=== PATIENT | female | born 1990 | race Caucasian/White ===

== ENCOUNTER 2016-11-30 21:57 | Emergency (ER) | payer OTHER ==
[~2016-11-30] VITALS: Ht 167.6 cm; Wt 77.1 kg
[~2016-11-30 21:57] MED LIST: GYNE-LOTRIMIN45 GM VG; IBUPROFEN600 MG ORAL; MACROBID100 MG ORAL; NKM; OFLOXACIN400 MG PO; ZOFRAN ODT4 MG ORAL
[2016-11-30] MEDS ORDERED: Ketorolac 30mg Inj IV ONE (22:45)
[2016-11-30] MEDS ORDERED: Acetaminophen 500mg (ES) tab ORAL ONE (22:45)
[2016-11-30 23:05] VITALS: BP 137/76
[2016-11-30 23:19] LABS: BASOPHILS % (AUTO) 0.5 % (0.0-2.0); EOSINOPHILS % (AUTO) 0.1 % (0.0-3.0); LYMPHOCYTES % (AUTO) 9.4 % (20.0-45.0); MEAN CORPUSCULAR HGB CONC 34.5 G/DL (32.0-36.0); MEAN CORPUSCULAR VOLUME 96 FL (80-99); MEAN PLATELET VOLUME 7.8 FL (6.5-10.1); MONOCYTES % (AUTO) 11.2 % (1.0-10.0); NEUTROPHILS % (AUTO) 78.9 % (45.0-75.0); PLATELET COUNT 144 K/UL (150-450); RED BLOOD COUNT 3.92 M/UL (4.20-5.40); RED CELL DISTRIBUTION WIDTH 11.2 % (11.6-14.8); WHITE BLOOD COUNT 13.8 K/UL (4.8-10.8)
[2016-11-30 23:26] LABS: APPEARANCE,URINE CLOUDY; KETONES,URINE 2+ (NEGATIVE); LEUKOCYTE ESTERASE ,URINE 3+ (NEGATIVE); NITRITE,URINE POSITIVE (NEGATIVE); PH,URINE 8 (4.5-8.0); PROTEIN,URINE 2+ (NEGATIVE); UROBILINOGEN,URINE NORMAL MG/DL (0.0-1.0)
[2016-11-30] MEDS ORDERED: cefTRIAXone 1 GM in NS 55 ML IVPB ONE (23:30)
[2016-11-30 23:38] LABS: ALANINE AMINOTRANSFERASE 15 U/L (3-33); ALBUMIN/GLOBULIN RATIO 1.2 (1.0-2.7); ANION GAP 17 (5-15); ASPARTATE AMINO TRANSFERASE 22 U/L (5-40); CALCIUM 8.9 mg/dL (8.6-10.2); CARBON DIOXIDE 28 mEQ/L (20-30); CHLORIDE 93 mEQ/L (98-107); CREATININE 0.9 mg/dL (0.5-0.9); GLOMERULAR FILTRATION RATE > 60 mL/min (>60); HEMOLYSIS 4; LIPASE 30 U/L (< 60); POTASSIUM 3.2 mEQ/L (3.4-4.9); SODIUM 138 mEQ/L (135-145); TOTAL PROTEIN 7.8 g/dL (6.6-8.7)
[2016-11-30 23:48] LABS: BACTERIA,URINE MANY /HPF; SQUAMOUS EPITHELIAL CELL,UR MANY /LPF (NONE/OCC); WBC,URINE TNTC /HPF (0 - 2)
--- NOTE | 2016-12-01 00:32 | Emergency Room Report ---
History of Present Illness General Chief Complaint: Abdominal Pain Source: Patient Present Illness HPI Is a 26-year-old female with no past medical history. She presents with chief complaint abdominal pain and fever. Onset yesterday. No nausea no vomiting. No diarrhea. Pain is diffuse. Does have some lower back pain. No dysuria frequency. No hematuria. Has not take anything for this. Pain is 7/10. Allergies: Coded Allergies: PENICILLINS (Verified Allergy, Mild, Itching, 06/05/14) Patient History Past Medical History: see triage record, old chart reviewed Past Surgical History: other Pertinent Family History: none Social History: Denies: smoking Last Menstrual Period: 11/16/16 Now: No Immunizations: other Reviewed Nursing Documentation: PMH: Agreed, PSxH: Agreed Review of Systems Constitutional: Reports: fever Eye: Denies: blurred vision, eye pain ENT: Denies: ear pain, nose congestion, throat swelling Respiratory: Denies: cough, shortness of breath Cardiovascular: Denies: chest pain, palpitations Gastrointestinal: Reports: abdominal pain Musculoskeletal: Denies: back pain, joint pain Skin: Denies: rash Neurological: Denies: headache, numbness Endocrine: Denies: increased thirst, increased urine Hematologic/Lymphatic: Denies: easy bruising All Other Systems: negative except mentioned in HPI Physical Exam Vital Signs Date Time Temp Pulse Resp B/P Pulse Ox O2 Delivery O2 Flow Rate FiO2 11/30/16 22:22 102.6 112 17 135/78 99 Room Air vitals with fever Sp02 EP Interpretation: reviewed, normal General Appearance: well appearing, no apparent distress, alert Head: normocephalic, atraumatic Eyes: bilateral eye EOMI, bilateral eye PERRL ENT: hearing grossly normal, normal pharynx Neck: full range of motion, supple, no meningismus Respiratory: chest non-tender, lungs clear, normal breath sounds Cardiovascular #1: regular rate, rhythm, no murmur Gastrointestinal: normal bowel sounds, no mass, no organomegaly, no bruit, non- distended, tenderness - LLQ tenderness with fullness Musculoskeletal: back normal, gait/station normal, normal range of motion Psychiatric: mood/affect normal Skin: warm/dry Medical Decision Making Diagnostic Impression: Primary Impression: Pyelonephritis Additional Impression: Ovarian mass, left ER Course Patient presents with fever and abdominal pain. She probably has a UTI/: Nephritis secondary to obstruction. She has a large left ovarian mass. This is concerning for neoplasm. Explained this to the patient. She will need [employer] followup and surgery. She felt better now. We'll discharge home. Lab Results Impression labs unremarkable CT/MRI/US Diagnostic Results CT/MRI/US Diagnostic Results : Imaging Test Ordered: CT abdomen and pelvis Impression Read by radiologist. Normal appendix. Large cystic mass measuring 21.8 cm x 10.7 cm x 21.5 cm arising from the left ovary. Last Vital Signs Date Time Temp Pulse Resp B/P Pulse Ox O2 Delivery O2 Flow Rate FiO2 11/30/16 23:05 100.8 97 25 137/76 98 Room Air Status: improved Disposition: HOME, SELF-CARE Condition: Stable Scripts Cephalexin* (KEFLEX*) 500 Mg Capsule 500 MG ORAL TID, #21 CAP 0 Refills Prov: KARLY CORTEZ M.D. 12/01/16 Ibuprofen* (MOTRIN*) 600 Mg Tablet 600 MG ORAL THREE TIMES A DAY, #30 TAB 0 Refills Prov: KARLY CORTEZ M.D. 12/01/16 Referrals: NOT CHOSEN [facility]/,REFERRING (PCP) Additional Instructions: Followup with your DrHarsha in 2-3 days. You will need to see a insurance adviser. You have a large ovarian mass that would need further workup. You will probably be and up with surgery. Return if symptom worsen. KARLY CORTEZ M.D. Dec 01, 2016 00:32
[2016-12-01] MEDS ORDERED: KEFLEX500 MG ORAL (01:33)
[2016-12-01] MEDS ORDERED: IBUPROFEN600 MG ORAL (01:33)
[2016-12-01 01:45] VITALS: BP 130/74
--- NOTE | 2016-12-01 10:40 | Diagnostic Imaging Report ---
Clinical Indication: Abdominal pain Technique: No oral contrast utilized, per emergency room physician request IV administration nonionic contrast. Venous phase spiral acquisition obtained through the abdomen and pelvis. Multiplanar reconstructions were generated. Total dose length product 823 mGycm. CTDIvol(s) 15 mGy Comparison: None Findings: There is a very large complex septated cystic mass in the pelvis and lower abdomen. This measures 22 cm transverse by 11 cm AP by 7 cm caudad. This demonstrates septation. The right ovary is visualized in the left ovary is not, so suspect that this lesion originates from the left ovary. The right ovary is enlarged, measuring 5.3 cm in length, and demonstrates what appear to be small cysts with septations rather than the usual ovarian follicular architecture. There is a trace amount of free pelvic cul-de-sac fluid. The liver, gallbladder, bile ducts, pancreas, spleen, adrenals are unremarkable. Multiple somewhat ill-defined low-attenuation lesions are seen in the anterior upper pole the right kidney, the largest measuring 2.3 cm long axis dimension. There is mild right hydronephrosis and proximal hydroureter. The left kidney demonstrates an interpolar region low-attenuation lesion, slightly higher than fluid attenuation but nonetheless likely a cyst. There is minimal left hydronephrosis and hydroureter The appendix is normal. The colon is stool-filled, otherwise unremarkable. No small bowel distention. No free intraperitoneal air. Distal esophagus, stomach, duodenum are unremarkable. The bones are unremarkable. The included lung bases demonstrate minimal posterior dependent atelectatic changes Impression: Large complex cystic pelvic mass, measuring 22 x 11 x 7 cm. Appearance is highly suspicious for neoplasm, likely left ovarian origin Somewhat unusual appearing right ovary, neoplastic involvement not completely excludable Right greater than left hydronephrosis and proximal hydroureter , likely due to ureteral obstruction secondary to the above-described mass Trace free pelvic fluid, possibly physiologic, possibly related to the above mass. Somewhat unusual right renal lesions. These could represent areas of focal infection, focal areas of neoplasm, less likely atypical cysts. Ultrasound may be useful for further characterization Left renal low-attenuation lesion, wall likely but not definitively a benign simple cyst. Likewise further evaluation with ultrasound should be considered This agrees with the preliminary interpretation provided overnight by [facility]. The CT scanner at [facility] is accredited by the [employer] and the scans are performed using protocols designed to limit radiation exposure to as low as reasonably achievable to attain images of sufficient resolution adequate for diagnostic evaluation.
== END 2016-12-01 01:45 | disposition home or self-care (01) ==
LOC: EMR 23:25
DX: N12 Tubulo-interstitial nephritis, not specified as acute or chronic (principal); R19.09 Other intra-abdominal and pelvic swelling, mass and lump; Z88.0 Allergy status to penicillin
CPT/HCPCS: 36415; 74177; 80053; 81003; 81025; 83690; 85025; 87086; 87181; 96360; 96374; 96375; 99284; J0696; J1885; Q9967